=== PATIENT | male | born 1980 | race Caucasian/White ===

== ENCOUNTER 2018-04-14 17:40 | Emergency (ER) | payer MEDICAID ==
[~2018-04-14] VITALS: Ht 162.6 cm; Wt 79.6 kg
[2018-04-14 17:50] VITALS: BP 145/86
--- NOTE | 2018-04-14 17:58 | NUR ---
PT AMBULATES TO THE [facility] W/ STEADY GAIT AND VSS TO WAIT FOR AN AVAILABLE BED
--- NOTE | 2018-04-14 19:13 | NUR ---
PATIENT AMBULATED TO ER BED 9.
--- NOTE | 2018-04-14 19:34 | NUR ---
PT BIB SELF C/O ANXIETY/STRESS FROM JOB , "SHAKINESS" AND WEAKNESS TO BL LEGS. PT IS AWAKE, ALERT AND ACTING APPROPRIATE, PERRL. PT SITTING IN BED, IN NO APPARENT DISTRESS. PT TAKES OTC ANTI-ANXIETY MEDICATIONS. NO PMH
--- NOTE | 2018-04-14 19:57 | NUR ---
dr childress at bedside evaluating pt.
[2018-04-14] MEDS ORDERED: LORazepam 2 MG/ML VIAL IM ONE (20:05)
[2018-04-14 20:26] VITALS: BP 140/78
== END 2018-04-14 20:26 | disposition home or self-care (01) ==
LOC: MED 17:40
DX: F41.9 Anxiety disorder, unspecified (principal)
CPT/HCPCS: 96372; 99284; J2060; 99283